=== PATIENT | male | born 1960 | race Two or more races ===

== ENCOUNTER 2018-07-29 19:21 | Emergency (ER) | payer SELFPAY ==
[~2018-07-29] VITALS: Ht 172.7 cm; Wt 68.0 kg
[2018-07-29 21:02] LABS: HEMOGLOBIN. 10.5 g/dL (14.0-18.0); LYMPHOCYTES % 19.4 % (20.0-50.0); MEAN CORPUSCULAR HEMOGLOBIN 33.1 pg (28.0-32.0); MEAN CORPUSCULAR VOLUME 97.8 fL (80.0-94.0); MONOCYTES % 8.4 % (2.0-8.0); NEUTROPHILS % 67.2 % (40.0-76.0); RED BLOOD CELL COUNT 3.17 mill/uL (4.7-6.1); RED CELL DISTRIBUTION WIDTH 16.9 % (11.6-14.6)
[2018-07-29 21:07] LABS: CHLORIDE 107 mEq/L (98-107); INR 1.1; PARTIAL THROMBOPLASTIN TIME 31.3 sec (23.4-31.0); PROTHROMBIN TIME 11.2 sec (9.1-11.1)
[2018-07-29 21:39] LABS: MEAN PLATELET VOLUME 7.8 fl (7.4-10.4)
[2018-07-29 21:45] LABS: PLATELET 32 x1000/uL (130-400)
[2018-07-30 10:46] VITALS: BP 160/90
== END 2018-07-30 10:56 | disposition left against medical advice (07) ==
LOC: ER 19:21 → EDBEDREQ 07-30 02:01 → EDBEDREQTM 07-30 02:01 → CANRESERV 07-30 03:27 → ENRESERV 07-30 03:27 → CANRESERV 07-30 09:07 → ENRESERV 07-30 09:07 → CANRESERV 07-30 10:28 → ENRESERV 07-30 10:28 → ER 07-30 10:56 → CANBEDREQ 07-30 12:19
DX: D69.6 Thrombocytopenia, unspecified (principal); R42 Dizziness and giddiness; D72.819 Decreased white blood cell count, unspecified; D53.9 Nutritional anemia, unspecified; D72.810 Lymphocytopenia; R73.9 Hyperglycemia, unspecified; E83.51 Hypocalcemia; H57.89 Other specified disorders of eye and adnexa; Z98.890 Other specified postprocedural states
CPT/HCPCS: 36415; 71045; 83036; 99285